=== PATIENT | male | born 1960 | race Caucasian/White ===

== ENCOUNTER 2018-08-09 08:16 | Emergency (ER) | payer OTHER ==
[~2018-08-09] VITALS: Ht 182.9 cm; Wt 104.8 kg
[2018-08-09 08:23] VITALS: Ht 182.9 cm; Wt 104.8 kg
[2018-08-09 09:48] VITALS: BP 148/94
== END 2018-08-09 09:48 | disposition home or self-care (01) ==
LOC: ED 08:16
DX: S22.42XA Multiple fractures of ribs, left side, initial encounter for closed fracture (principal); J44.9 Chronic obstructive pulmonary disease, unspecified; W22.8XXA Striking against or struck by other objects, initial encounter; Y93.89 Activity, other specified; Y92.89 Other specified places as the place of occurrence of the external cause; Y99.8 Other external cause status